=== PATIENT | male | born 1995 | race Caucasian/White ===

== ENCOUNTER 2018-10-05 13:12 | Emergency (ER) | payer BC, MEDICARE, OTHER ==
[~2018-10-05] VITALS: Ht 170.2 cm; Wt 90.7 kg
--- NOTE | 2018-10-05 13:52 | Diagnostic Imaging Report ---
EXAMINATION: PA and lateral views of the chest. COMPARISON: None CLINICAL HISTORY: Chest pain for one week DISCUSSION: Lines/tubes: None. Lungs: The lungs are well inflated and clear. There is no evidence of pneumonia or pulmonary edema. Pleura: There is no pleural effusion or pneumothorax. Heart and mediastinum: Cardiomediastinal silhouette is unremarkable. Pulmonary vasculature is normal. Bones and soft tissues: No acute bony abnormalities. IMPRESSION: No acute cardiopulmonary abnormalities. Signed by: Dr. Grzegorz Crowder M.D. on 10/05/2018 1:49 PM
[2018-10-05] MEDS ORDERED: KETOROLAC TROMETHAMINE 60 MG/2 ML VIAL IM ONE (14:00)
[2018-10-05 14:04] VITALS: BP 151/83
== END 2018-10-05 14:07 | disposition home or self-care (01) ==
LOC: ER 13:12
DX: R07.89 Other chest pain (principal)
CPT/HCPCS: 71046; 93005; 99283